=== PATIENT | female | born 1995 | race American Indian/Alaskan Native ===

== ENCOUNTER 2018-01-23 23:59 | Emergency (ER) | payer OTHER ==
[2018-01-24 00:43] VITALS: BMI 33.1
[2018-01-24 00:54] VITALS: RESP 18; TEMP 98.3; O2SAT 100
--- NOTE | 2018-01-24 00:57 | ED PDOC ---
Arrival/HPI - General Chief Complaint: Female Genitourinary Time Seen by Provider: 01/24/18 00:47 Historian: Patient - History of Present Illness Narrative History of Present Illness (Text): 01/24/18 00:54 22yo female with no pmhx present to ED requesting test. states she has been feeling nauseous and thinks she might be . She notes that her LMP was December 26. She denies abdominal pain, fever chills, urinary symptoms, dizziness, hematuria, back pain, headache, any other complaint. Past Medical History - Provider Review Nursing Documentation Reviewed: Yes - Hematological/Oncological Hx Blood Disorders: No - Integumentary Hx Dermatological Disorder: No - Musculoskeletal/Rheumatological Hx Musculoskeletal Disorders: No - Gastrointestinal Hx Gastrointestinal Disorders: No - Genitourinary/Gynecological Hx Genitourinary Disorders: No - Psychiatric Hx Psychophysiologic Disorder: No Hx Substance Use: No - Anesthesia Hx Anesthesia: No Family/Social History - Physician Review Nursing Documentation Reviewed: Yes Family/Social History: Unknown Family HX Smoking Status: Never Smoked Hx Alcohol Use: No Hx Substance Use: No Allergies/Home Meds Allergies/Adverse Reactions: Allergies No Known Allergies Allergy (Verified 01/24/18 00:42) Review of Systems - Physician Review All systems were reviewed & negative as marked: Yes - Review of Systems Constitutional: Normal Eyes: Normal ENT: Normal Respiratory: Normal Cardiovascular: Normal Gastrointestinal: Nausea. absent: Abdominal Pain, Constipation, Diarrhea, Vomiting, Hematochezia, Hematemesis Genitourinary Female: Normal Musculoskeletal: Normal Skin: Normal Neurological: Normal Endocrine: Normal Hemo/Lymphatic: Normal Psychiatric: Normal Physical Exam Vital Signs Reviewed: Yes Vital Signs Temp Pulse Resp BP Pulse Ox 01/24/18 01:17 70 18 115/72 100 01/24/18 00:54 98.3 F 68 18 118/70 100 Temperature: Afebrile Blood Pressure: Normal Pulse: Regular Respiratory Rate: Normal Appearance: Positive for: Well-Appearing, Non-Toxic, Comfortable Pain Distress: None Mental Status: Positive for: Alert and Oriented X 3 - Systems Exam Head: Present: Atraumatic, Normocephalic Pupils: Present: PERRL Extroacular Muscles: Present: EOMI Conjunctiva: Present: Normal Mouth: Present: Moist Mucous Membranes Neck: Present: Normal Range of Motion Respiratory/Chest: Present: Clear to Auscultation, Good Air Exchange. No: Respiratory Distress, Accessory Muscle Use Cardiovascular: Present: Regular Rate and Rhythm, Normal S1, S2. No: Murmurs Abdomen: Present: Normal Bowel Sounds, Other (soft). No: Tenderness, Distention , Peritoneal Signs, Rebound, Guarding, McBurney's Point Tender, Rovsing's Sign Present Back: Present: Normal Inspection Upper Extremity: Present: Normal Inspection. No: Cyanosis, Edema Lower Extremity: Present: Normal Inspection. No: Edema Neurological: Present: GCS=15, CN II-XII Intact, Speech Normal Skin: Present: Warm, Dry, Normal Color. No: Rashes Psychiatric: Present: Alert, Oriented x 3, Normal Insight, Normal Concentration Medical Decision Making ED Course and Treatment: 01/24/18 03:20 Upreg was negative. she ws given Zofran and DC home. Referred to [facility]/clinic - Medication Orders Current Medication Orders: Discontinued Medications Ondansetron HCl (Zofran Odt) 4 mg PO STAT STA Stop: 01/24/18 00:59 Last Admin: 01/24/18 01:02 Dose: 4 mg Disposition/Present on Arrival - Present on Arrival Any Indicators Present on Arrival: No History of DVT/PE: No History of Uncontrolled Diabetes: No Urinary Catheter: No History of Decub. Ulcer: No History Surgical Site Infection Following: None - Disposition Have Diagnosis and Disposition been Completed?: Yes Diagnosis: Negative test, Nausea Disposition: HOME/ ROUTINE Disposition Time: 01:00 Patient Plan: Discharge Condition: STABLE Discharge Instructions (ExitCare): Tests, Nausea and Vomiting, Adult Additional Instructions: Follow up with your Doctor Return to ED for any new symptoms Prescriptions: Ondansetron ODT [Zofran ODT] 4 mg PO Q6 #5 odt Referrals: [facility] at [facility] [place] [Outside] - Follow up with primary Forms: [employer] (Setswana)
[2018-01-24 02:35] VITALS: BP 115/72; PULSE 70
== END 2018-01-24 01:17 | disposition home or self-care (01) ==
LOC: ED 23:59
DX: Z32.02 Encounter for pregnancy test, result negative (principal); R11.0 Nausea

== ENCOUNTER 2018-05-27 16:12 | Emergency (ER) | payer OTHER ==
[2018-05-27 16:12] VITALS: BMI 33.1
[2018-05-27 16:32] VITALS: BP 124/68; PULSE 81; RESP 16; TEMP 98.2; O2SAT 100
--- NOTE | 2018-05-27 16:40 | ED PDOC ---
Arrival/HPI - General Chief Complaint: Abdominal Pain Time Seen by Provider: 05/27/18 16:15 Historian: Patient - History of Present Illness Narrative History of Present Illness (Text): 05/27/18 16:35 A 22 year old female, with no significant past medical history, presents to the emergency department complaining of abdominal cramping associated with nausea and vomiting. Patient describes abdominal cramping as though "something is moving in there." Patient requests to find out whether or not she is . Patient denies any other complaints at this time. No PMD Past Medical History - Provider Review Nursing Documentation Reviewed: Yes - Infectious Disease Hx of Infectious Diseases: None - Cardiac Hx Cardiac Disorders: No - Pulmonary Hx Respiratory Disorders: No - Neurological Hx Neurological Disorder: No - HEENT Hx HEENT Disorder: No - Renal Hx Renal Disorder: No - Endocrine/Metabolic Hx Endocrine Disorders: No - Hematological/Oncological Hx Blood Disorders: No - Integumentary Hx Dermatological Disorder: No - Musculoskeletal/Rheumatological Hx Musculoskeletal Disorders: No - Gastrointestinal Hx Gastrointestinal Disorders: No - Genitourinary/Gynecological Hx Genitourinary Disorders: No - Psychiatric Hx Psychophysiologic Disorder: No Hx Substance Use: Yes (Marijuana daily) - Anesthesia Hx Anesthesia: No Family/Social History - Physician Review Nursing Documentation Reviewed: Yes Family/Social History: No Known Family HX Smoking Status: Marijuana Hx Alcohol Use: Yes Frequency of alcohol use: Socially Hx Substance Use: Yes (Marijuana daily) Allergies/Home Meds Allergies/Adverse Reactions: Allergies No Known Allergies Allergy (Verified 01/24/18 00:42) Review of Systems - Physician Review All systems were reviewed & negative as marked: Yes - Review of Systems Constitutional: absent: Fevers, Night Sweats Gastrointestinal: Abdominal Pain (cramping), Nausea, Vomiting Physical Exam Vital Signs Reviewed: Yes Vital Signs Temp Pulse Resp BP Pulse Ox 05/27/18 16:32 98.2 F 81 16 124/68 100 Temperature: Afebrile Blood Pressure: Normal Pulse: Regular Respiratory Rate: Normal Appearance: Positive for: Well-Appearing, Non-Toxic, Comfortable, Other (obese) Pain Distress: None Mental Status: Positive for: Alert and Oriented X 3 - Systems Exam Head: Present: Atraumatic, Normocephalic Pupils: Present: PERRL Extroacular Muscles: Present: EOMI Conjunctiva: Present: Normal Mouth: Present: Moist Mucous Membranes Neck: Present: Normal Range of Motion Respiratory/Chest: Present: Clear to Auscultation, Good Air Exchange. No: Respiratory Distress, Accessory Muscle Use Cardiovascular: Present: Regular Rate and Rhythm, Normal S1, S2. No: Murmurs Abdomen: No: Tenderness, Distention, Peritoneal Signs Back: Present: Normal Inspection Upper Extremity: Present: Normal Inspection. No: Cyanosis, Edema Lower Extremity: Present: Normal Inspection. No: Edema Neurological: Present: GCS=15, CN II-XII Intact, Speech Normal Skin: Present: Warm, Dry, Normal Color. No: Rashes Psychiatric: Present: Alert, Oriented x 3, Normal Insight, Normal Concentration Medical Decision Making ED Course and Treatment: 05/27/18 16:48 Impression: 22 year old female with abdominal cramping with associated nausea and vomiting. No acute findings on physical exam except patient appears obese. ro gastris pancreatis colitis gerd. Plan: -- Reassess and disposition Prior Visits: Notes and results from previous visits were reviewed. Patient was last seen here in the emergency department on 01/24/2018 requesting for test. Patient was discharged home and referred to [facility]. Progress Notes: Leaving Against Medical Advice (AMA): The patient is choosing to leave against medical advice. I have personally explained to the patient that choosing to do so may result in permanent bodily harm or . I have discussed at great length that without further evaluation and monitoring there may be unforeseen circumstances and/or deterioration causing permanent bodily harm or as a result of their choice. The patient is alert, oriented, and shows the mental capacity to make clear decisions regarding the patient's health care at this time. The patient continues to wish to leave against medical advice. In light of the patient's decision to leave against medical advice, follow-up has been arranged and the patient is aware of the importance to following up as instructed. The patient has been advised that they should return to the emergency room immediately if they change their mind at any time, or if their condition begins to change or worsen in any way. 05/27/18 17:23 refuses labs , asking for immediate dc. - Scribe Statement The provider has reviewed the documentation as recorded by the Karmen Bedolla Provider Scribe Attestation: All medical record entries made by the Dentonibkenneth were at my direction and personally dictated by me. I have reviewed the chart and agree that the record accurately reflects my personal performance of the history, physical exam, medical decision making, and the department course for this patient. I have also personally directed, reviewed, and agree with the discharge instructions and disposition. Disposition/Present on Arrival - Present on Arrival Any Indicators Present on Arrival: No History of DVT/PE: No History of Uncontrolled Diabetes: No Urinary Catheter: No History of Decub. Ulcer: No History Surgical Site Infection Following: None - Disposition Have Diagnosis and Disposition been Completed?: Yes Diagnosis: Abdominal pain, Left against medical advice Disposition: AGAINST MEDICAL ADVICE Disposition Time: 04:00 Condition: UNKNOWN Discharge Instructions (ExitCare): Acute Abdomen (Belly Pain), Adult (DC), Leaving Against Medical Advice Additional Instructions: return to er with worsening symptoms or concerns. you are declining lab tests and further work up. return to any er with worsening symptoms or concerns. Referrals: [facility] [Outside] - Follow up with primary [facility] at [facility] [place] [Outside] - [facility] with [facility] [Outside] - Follow up with primary Forms: [employer] ([employer])
== END 2018-05-27 16:39 | disposition left against medical advice (07) ==
LOC: ED 16:12
DX: R10.9 Unspecified abdominal pain (principal)

== ENCOUNTER 2018-07-15 18:46 | Observation (INO) | payer MEDICAID, OTHER ==
[2018-07-15 18:49] VITALS: BMI 30.7
[2018-07-15] MEDS ORDERED: Sodium Chloride 0.9% 1,000 ML IV STA (19:11)
--- NOTE | 2018-07-15 19:27 | ED PDOC ---
Arrival/HPI - General Chief Complaint: Abdominal Pain Time Seen by Provider: 07/15/18 18:47 Historian: Patient - History of Present Illness Narrative History of Present Illness (Text): 07/15/18 19:26 23-year-old female presents today with abdominal pain nausea vomiting that started today around 11:00 in the afternoon. Patient is complaining of a crampy diffuse abdominal pain. She denies fevers or chills. Patient states her boy friend had similar symptoms yesterday. Patient denies any urinary symptoms. No bladder or bowel incontinence. She denies back pain. Patient denies chest pain or shortness of breath. No medications have been taken at home. Patient states she's vomited multiple times today and now is unable to hold anything down. Past Medical History - Provider Review Nursing Documentation Reviewed: Yes - Travel History Have you recently traveled outside [place] w/in the past 3 mons?: No - Infectious Disease Hx of Infectious Diseases: None - Cardiac Hx Cardiac Disorders: No - Pulmonary Hx Respiratory Disorders: No - Neurological Hx Neurological Disorder: No - HEENT Hx HEENT Disorder: No - Renal Hx Renal Disorder: No - Endocrine/Metabolic Hx Endocrine Disorders: No - Hematological/Oncological Hx Blood Disorders: No - Integumentary Hx Dermatological Disorder: No - Musculoskeletal/Rheumatological Hx Musculoskeletal Disorders: No - Gastrointestinal Hx Gastrointestinal Disorders: No - Genitourinary/Gynecological Hx Genitourinary Disorders: No - Psychiatric Hx Psychophysiologic Disorder: No Hx Substance Use: Yes (Marijuana daily) - Anesthesia Hx Anesthesia: No Family/Social History - Physician Review Nursing Documentation Reviewed: Yes Family/Social History: Unknown Family HX Smoking Status: Never Smoked Hx Alcohol Use: Yes Hx Substance Use: Yes (Marijuana daily) Allergies/Home Meds Allergies/Adverse Reactions: Allergies No Known Allergies Allergy (Verified 01/24/18 00:42) Review of Systems - Review of Systems Constitutional: absent: Fatigue, Fevers Respiratory: absent: SOB, Cough Cardiovascular: absent: Chest Pain, Palpitations Gastrointestinal: Abdominal Pain, Nausea, Vomiting. absent: Constipation, Diarrhea Genitourinary Female: absent: Dysuria, Frequency, Hematuria, Vaginal Bleeding Musculoskeletal: absent: Arthralgias, Back Pain, Neck Pain Skin: absent: Rash, Pruritis Neurological: absent: Headache Psychiatric: absent: Anxiety, Depression Physical Exam Vital Signs Reviewed: Yes Vital Signs Temp Pulse Resp BP Pulse Ox 07/15/18 18:47 98.9 F 97 H 18 121/67 96 Temperature: Afebrile Blood Pressure: Normal Pulse: Regular Respiratory Rate: Normal Appearance: Positive for: Well-Appearing, Non-Toxic, Comfortable Pain Distress: None Mental Status: Positive for: Alert and Oriented X 3 - Systems Exam Head: Present: Atraumatic Mouth: Present: Moist Mucous Membranes Neck: Present: Normal Range of Motion Respiratory/Chest: Present: Clear to Auscultation, Good Air Exchange. No: Respiratory Distress, Accessory Muscle Use Cardiovascular: Present: Regular Rate and Rhythm, Normal S1, S2. No: Murmurs Abdomen: Present: Tenderness (minimal periumbilical tenderness). No: Distention, Peritoneal Signs, Rebound, Guarding Back: Present: Normal Inspection. No: CVA Tenderness Upper Extremity: Present: Normal ROM Lower Extremity: Present: Normal ROM Neurological: Present: GCS=15, Speech Normal Skin: Present: Warm, Dry, Normal Color. No: Rashes Psychiatric: Present: Alert, Oriented x 3 Medical Decision Making ED Course and Treatment: 07/15/18 19:27 Patient is nontoxic well appearing with stable vital signs presenting with abdominal pain. nausea and vomiting. pt given NS iv bolus, zofran for nausea. CBC wnl CMP slight elevation in ast and alt Lipase wnl Urinalysis no leukocytes CAT scan: Findings: Chest: The visualized lung bases are clear. Abdomen: The kidneys are normal in size bilaterally. There is no evidence of hydronephrosis or nephrolithiasis. The liver, spleen, pancreas, gallbladder and adrenal glands are unremarkable. The aorta demonstrates normal caliber and contour. There is no abdominal lymphadenopathy or ascites. There is mild bowel wall thickening and fluid distention of the proximal small bowel. Pelvis: The colon is unremarkable, with no obstructive or inflammatory changes. The urinary bladder is severely distended, extending into the abdomen. No focal masses are seen within the urinary bladder. There is no pelvic lymphadenopathy or ascites. There is a simple cyst in the left adnexa measuring 2.1 x 1.6 cm. The other pelvic structures appear unremarkable. Bones: There are no suspicious osseous abnormalities seen. Impression: 1. Severe fluid distention the urinary bladder, suspicious for bladder outlet obstruction.2. Mild small bowel enteritis. No evidence of bowel obstruction. 3. No evidence of hydronephrosis or nephrolithiasis. 4. Simple left ovarian cyst. Patient reassessment: pt c/o abdominal pain in er. bladder scan; shows 785cc pt found to have severe distension of urinary bladder. 14 nepali placed. only 250cc of urine from ceja. ? bladder distension vs mass? will consult surgery. case discussed with dr. toledo; will see patient tomorrow in office. case discussed with surgical clinical reviewer Dr. kidd. Discussed all results with patient and family in depth. advised them of my concern for possible mass. case discussed with dr. coe; accepts admission Impression: urinary retention, abdominal pain,nausea/vomiting admit med/surg. 07/15/18 23:33 - RAD Interpretation Radiology Orders: 07/15/18 19:24 ABD & PELVIS IV CONTRAST ONLY [CT] Stat - Medication Orders Current Medication Orders: Sodium Chloride (Sodium Chloride 0.9%) 1,000 mls @ 999 mls/hr IV .Q1H1M STA Stop: 07/15/18 20:11 Ondansetron HCl (Zofran Inj) 4 mg IVP STAT STA Stop: 07/15/18 19:25 Disposition/Present on Arrival - Present on Arrival Any Indicators Present on Arrival: No History of DVT/PE: No History of Uncontrolled Diabetes: No Urinary Catheter: No History of Decub. Ulcer: No History Surgical Site Infection Following: None - Disposition Have Diagnosis and Disposition been Completed?: Yes Diagnosis: Abdominal pain, Nausea & vomiting, Abdominal mass Disposition Time: 21:39 Patient Plan: Observation Patient Problems: Current Active Problems Problem Status Onset Abdominal mass Acute Abdominal pain Acute Nausea & vomiting Acute Condition: FAIR
[2018-07-15 19:43] LABS: BASO # 0.01 K/mm3 (0.0-2.0); BASO % 0.1 % (0.0-3.0); EOS % 0.3 % (1.5-5.0); GRAN # 6.41 (1.4-6.5); GRAN % 86.3 % (50.0-68.0); HEMOGLOBIN 13.9 g/dL (12.0-16.0); LYMPH # 0.6 (1.2-3.4); LYMPH % 8.1 % (22.0-35.0); MEAN CELL VOLUME 91.7 fl (80.0-105.0); MEAN CORPUSCULAR HEMOGLOBIN 31.2 pg (25.0-35.0); MEAN CORPUSCULAR HGB CONC 34.1 g/dl (31.0-37.0); MONO # 0.4 (0.1-0.6); MONO % 5.2 % (1.0-6.0); RBC 4.45 10^6/uL (3.5-6.1); RED CELL DISTRIBUTION WIDTH 13.4 % (11.5-14.5); WHITE BLOOD COUNT 7.4 10^3/uL (4.5-11.0)
[2018-07-15 19:44] LABS: URINE BILIRUBIN NEGATIVE (NEGATIVE); URINE BLOOD NEGATIVE (NEGATIVE); URINE GLUCOSE (UA) NEGATIVE (NEGATIVE); URINE LEUKOCYTE ESTERASE NEGATIVE Leu/uL (NEGATIVE); URINE PROTEIN 30 mg/dL (<30 mg/dL)
[2018-07-15 19:45] LABS: URINE APPEARANCE SLIGHT-CLOUDY (CLEAR); URINE COLOR YELLOW (YELLOW)
[2018-07-15 19:48] LABS: URINE BACTERIA TRACE (NEG); URINE RBC 0 - 2 /hpf (0-2); URINE WBC 0 - 2 /hpf (0-6)
[2018-07-15 19:54] LABS: ALB/GLOB RATIO 1.1 (1.1-1.8); ALBUMIN 4.4 g/dL (3.0-4.8); ALT/SGPT 72 U/L (7-56); AST/SGOT 40 U/L (14-36); BLOOD UREA NITROGEN 14 mg/dL (7-21); CALCIUM 8.9 mg/dL (8.4-10.5); GFR NON-AFRICAN AMERICAN > 60; LIPASE 35 U/L (23-300)
[2018-07-15] MEDS ORDERED: Iohexol 350 MG/100 ML VIAL ONE (20:15)
--- NOTE | 2018-07-16 00:05 | CP.PCM.HP ---
<Bryanna Jett - Last Filed: 07/16/18 06:32> History of Present Illness - History of Present Illness History of Present Illness: Bryanna Jett, PGY1 Hospital H&P This is a 23 year old female who denies any medical history presenting to the hospital for abdominal pain that is has been intermittent over the last few months. Pain is located in the B/L lower abdomen, rated 6/10 at worst, sharp, non radiating and exacerbated by movement and denies any relieving factors. She admits to increasing abdominal distention, constipation and urinary frequency over the last few months as well. Patient states she returned from [place] [employer] over the weekend with her boyfriend and both had nausea and vomiting x7 non bloody over the past day which prompted her to come to the ED. Last BM was this morning at 11AM. She has not had an appetite since her last meal this morning. Per mother, patient has been eating less over the last few months. Patient saw her OBGYN two months ago for routine visit and had pap smear done but denies any other imaging at that time. She denies CP, SOB, fevers, headaches, chills, back pain, diarrhea, hematemesis, hematochezia, numbness, tingling, swelling, recent sickness, trauma and lifestyle change including diet and weight loss/gain. 12 point ROS noted here, otherwise unremarkable. PMD: none currently, will sign up for one soon per patient PMH: denies Meds: denies SH: occasional drinking, smokes marijuana, denies tobacco Sx: denies All: denies FH: DM and HTN LMP was last week with bleeding that last 7-10 days and cycles that are irregular and associated with heavy bleeding Present on Admission - Present on Admission Any Indicators Present on Admission: No Past Patient History - Infectious Disease Hx of Infectious Diseases: None - Past Social History Smoking Status: Current Some Days Smoker - CARDIAC Hx Cardiac Disorders: No - PULMONARY Hx Respiratory Disorders: No - NEUROLOGICAL Hx Neurological Disorder: No - HEENT Hx HEENT Problems: No - RENAL Hx Chronic Kidney Disease: No - ENDOCRINE/METABOLIC Hx Endocrine Disorders: No - HEMATOLOGICAL/ONCOLOGICAL Hx Blood Disorders: No - INTEGUMENTARY Hx Dermatological Problems: No - MUSCULOSKELETAL/RHEUMATOLOGICAL Hx Musculoskeletal Disorders: No - GASTROINTESTINAL Hx Gastrointestinal Disorders: No - GENITOURINARY/GYNECOLOGICAL Hx Genitourinary Disorders: No - PSYCHIATRIC Hx Psychophysiologic Disorder: No Hx Substance Use: Yes (Marijuana daily) - SURGICAL HISTORY Hx Surgeries: No - ANESTHESIA Hx Anesthesia: No Meds Allergies/Adverse Reactions: Allergies Allergy/AdvReac Type Severity Reaction Status Date / Time No Known Allergies Allergy Verified 01/24/18 00:42 Physical Exam - Constitutional Appears: No Acute Distress - Head Exam Head Exam: ATRAUMATIC, NORMAL INSPECTION - Eye Exam Eye Exam: EOMI Pupil Exam: PERRL - ENT Exam ENT Exam: Mucous Membranes Moist - Respiratory Exam Respiratory Exam: Clear to Auscultation Bilateral, NORMAL BREATHING PATTERN. absent: Accessory Muscle Use, Wheezes, Respiratory Distress - Cardiovascular Exam Cardiovascular Exam: REGULAR RHYTHM, +S1, +S2 - GI/Abdominal Exam GI & Abdominal Exam: Distended, Normal Bowel Sounds, Soft. absent: Firm, Guarding Additional comments: B/L lower abdominal tenderness appreciated with superficial tenderness - Extremities Exam Extremities exam: Positive for: normal inspection, pedal pulses present. Negative for: calf tenderness - Back Exam Back exam: NORMAL INSPECTION. absent: CVA tenderness (L), CVA tenderness (R) - Neurological Exam Neurological exam: Alert, Oriented x3 - Skin Skin Exam: Normal Color, Warm Results - Vital Signs Recent Vital Signs: Last Vital Signs Temp 98.9 F 07/15/18 18:47 Pulse 97 H 07/15/18 18:47 Resp 18 07/15/18 18:47 BP 121/67 07/15/18 18:47 Pulse Ox 96 07/15/18 18:47 - Labs Result Diagrams: 07/15/18 19:15 07/15/18 19:15 Labs: Laboratory Results - last 24 hr 07/15/18 07/15/18 07/15/18 19:15 19:15 19:15 WBC 7.4 RBC 4.45 Hgb 13.9 Hct 40.8 MCV 91.7 MCH 31.2 MCHC 34.1 RDW 13.4 Plt Count 199 MPV 12.0 H Gran % 86.3 H Lymph % (Auto) 8.1 L [place] % (Auto) 5.2 Eos % (Auto) 0.3 L Baso % (Auto) 0.1 Gran # 6.41 Lymph # (Auto) 0.6 L [place] # (Auto) 0.4 Eos # (Auto) 0.0 Baso # (Auto) 0.01 Sodium 141 Potassium 4.3 Chloride 105 Carbon Dioxide 27 Anion Gap 13 BUN 14 Creatinine 0.6 L Est GFR ( Amer) > 60 Est GFR (Non-Af Amer) > 60 Random Glucose 111 H Calcium 8.9 Total Bilirubin 1.1 AST 40 H ALT 72 H Alkaline Phosphatase 96 Total Protein 8.4 H Albumin 4.4 Globulin 4.0 Albumin/Globulin Ratio 1.1 Lipase 35 Urine Color Yellow Urine Appearance Slight-cloudy Urine pH 6.0 Ur Specific [place] >= 1.030 Urine Protein 30 H Urine Glucose (UA) Negative Urine Ketones Trace H Urine Blood Negative Urine Nitrate Negative Urine Bilirubin Negative Urine Urobilinogen 1.0 H Ur Leukocyte Esterase Negative Urine RBC 0 - 2 Urine WBC 0 - 2 Ur Epithelial Cells 6 - 8 Urine Bacteria Trace Urine Other Mucus Assessment & Plan - Assessment and Plan (Free Text) Assessment: This is a 23 year old female who denies any medical history presenting to the hospital for abdominal pain that is has been intermittent over the last few months. Working up patient for possible benign cystic structure vs malignancy. Plan: Abdominal mass -CTAP showed large cystic structure extending from the pelvis into the abdomen measuring approximately 30 x 25 x 15 cm, of uncertain etiology but may be ovarian in origin. The urinary bladder is underdistended and is compressed by the cystic lesion. F/u official read -bladder scan showed urinary retention of 705cc -ceja drained 200cc of urine in ED -CEA, CA 125 pending -Chest CT pending -MRI of abdomen/pelvis pending -transvaginal US pending -POC is negative -urology on consult, Dr. Snyder -OBGYN on consult, Dr. Mcpherson -GI on consult, Dr. Hughes -Surgery on consult, Dr. Ortega Transaminitis -uncertain etiology, consider local compression by abdominal mass -hepatitis panel pending -HIV pending PPX with SCD and pepcid Patient seen and case discussed with attending, Dr. Multani <Hannah Multani - Last Filed: 07/16/18 19:37> Results - Vital Signs Recent Vital Signs: Last Vital Signs Temp 98.6 F 07/16/18 14:21 Pulse 98 H 07/16/18 14:21 Resp 18 07/16/18 14:21 BP 106/65 07/16/18 14:21 Pulse Ox 98 07/16/18 14:21 - Labs Result Diagrams: 07/16/18 07:00 07/16/18 07:00 Labs: Laboratory Results - last 24 hr 07/15/18 07/15/18 07/15/18 19:15 19:15 19:15 WBC 7.4 RBC 4.45 Hgb 13.9 Hct 40.8 MCV 91.7 MCH 31.2 MCHC 34.1 RDW 13.4 Plt Count 199 MPV 12.0 H Gran % 86.3 H Lymph % (Auto) 8.1 L [place] % (Auto) 5.2 Eos % (Auto) 0.3 L Baso % (Auto) 0.1 Gran # 6.41 Lymph # (Auto) 0.6 L [place] # (Auto) 0.4 Eos # (Auto) 0.0 Baso # (Auto) 0.01 Sodium 141 Potassium 4.3 Chloride 105 Carbon Dioxide 27 Anion Gap 13 BUN 14 Creatinine 0.6 L Est GFR ( Amer) > 60 Est GFR (Non-Af Amer) > 60 Random Glucose 111 H Calcium 8.9 Phosphorus Magnesium Total Bilirubin 1.1 AST 40 H ALT 72 H Alkaline Phosphatase 96 Total Protein 8.4 H Albumin 4.4 Globulin 4.0 Albumin/Globulin Ratio 1.1 Lipase 35 Carcinoembryonic Ag [place] 125 Antigen Urine Color Yellow Urine Appearance Slight-cloudy Urine pH 6.0 Ur Specific [place] >= 1.030 Urine Protein 30 H Urine Glucose (UA) Negative Urine Ketones Trace H Urine Blood Negative Urine Nitrate Negative Urine Bilirubin Negative Urine Urobilinogen 1.0 H Ur Leukocyte Esterase Negative Urine RBC 0 - 2 Urine WBC 0 - 2 Ur Epithelial Cells 6 - 8 Urine Bacteria Trace Urine Other Mucus Hepatitis A IgM Ab Hep Bs Antigen Hep B Core IgM Ab Hepatitis C Antibody 07/15/18 07/15/18 07/16/18 19:15 19:15 07:00 WBC 6.6 RBC 4.16 Hgb 12.7 Hct 37.7 MCV 90.6 MCH 30.5 MCHC 33.7 RDW 13.6 Plt Count 193 MPV 11.8 H Gran % 80.7 H Lymph % (Auto) 12.1 L [place] % (Auto) 7.0 H Eos % (Auto) 0.0 L Baso % (Auto) 0.2 Gran # 5.33 Lymph # (Auto) 0.8 L [place] # (Auto) 0.5 Eos # (Auto) 0.0 Baso # (Auto) 0.01 Sodium Potassium Chloride Carbon Dioxide Anion Gap BUN Creatinine Est GFR ( Amer) Est GFR (Non-Af Amer) Random Glucose Calcium Phosphorus Magnesium Total Bilirubin AST ALT Alkaline Phosphatase Total Protein Albumin Globulin Albumin/Globulin Ratio Lipase Carcinoembryonic Ag 0.8 CA 125 Antigen < 5.5 Urine Color Urine Appearance Urine pH Ur Specific [place] Urine Protein Urine Glucose (UA) Urine Ketones Urine Blood Urine Nitrate Urine Bilirubin Urine Urobilinogen Ur Leukocyte Esterase Urine RBC Urine WBC Ur Epithelial Cells Urine Bacteria Urine Other Hepatitis A IgM Ab Hep Bs Antigen Hep B Core IgM Ab Hepatitis C Antibody 07/16/18 07/16/18 07:00 07:00 WBC RBC Hgb Hct MCV MCH MCHC RDW Plt Count MPV Gran % Lymph % (Auto) [place] % (Auto) Eos % (Auto) Baso % (Auto) Gran # Lymph # (Auto) [place] # (Auto) Eos # (Auto) Baso # (Auto) Sodium 137 Potassium 3.7 Chloride 104 Carbon Dioxide 27 Anion Gap 10 BUN 10 Creatinine 0.6 L Est GFR ( Amer) > 60 Est GFR (Non-Af Amer) > 60 Random Glucose 106 Calcium 8.7 Phosphorus 3.7 Magnesium 1.8 Total Bilirubin 1.8 H AST 29 ALT 62 H Alkaline Phosphatase 86 Total Protein 7.8 Albumin 4.0 Globulin 3.8 Albumin/Globulin Ratio 1.1 Lipase Carcinoembryonic Ag CA 125 Antigen Urine Color Urine Appearance Urine pH Ur Specific [place] Urine Protein Urine Glucose (UA) Urine Ketones Urine Blood Urine Nitrate Urine Bilirubin Urine Urobilinogen Ur Leukocyte Esterase Urine RBC Urine WBC Ur Epithelial Cells Urine Bacteria Urine Other Hepatitis A IgM Ab Negative Hep Bs Antigen Negative Hep B Core IgM Ab Negative Hepatitis C Antibody Negative Attending/Attestation - Attestation I have personally seen and examined this patient.: Yes I have fully participated in the care of the patient.: Yes I have reviewed all pertinent clinical information: Yes
[2018-07-16] MEDS ORDERED: Influenza Vaccine 60 mcg/0.5 mL SYR (4YR UP) IM ONE (02:09)
--- NOTE | 2018-07-16 02:34 | CP.PCM.CON ---
History of Present Illness - History of Present Illness History of Present Illness: 23F with no significant past medical history who presents to [facility] [place] ED with complaints of abdominal pain. Patient states abdominal pain has been intermittent in nature over the past 5 months. She reports having ongoing intermittent nausea/vomiting over these past 5 months, as well as increase in urinary frequency. As per patient's mother, pt has not been eating as much since the onset of symptoms began and pt reports increase in abdominal girth despite lower food intake. Patient is satiated with small meals. Patient describes pain is located along her lower abdominal region. Her last menstrual period was last week. Patient states her menstrual cycles are irregular and typically last 7-10 days with heavy bleeding throughout. At time of examination patient denied fever/chills, chest pain, SOB, hematemesis, hematochezia. PMH: as stated above PSurgHx: denies SH: occasional drinking, smokes marijuana, denies tobacco All: NKDA FH: DM and HTN. Denies history of CA Past Patient History - Infectious Disease Hx of Infectious Diseases: None - Past Social History Smoking Status: Current Some Days Smoker - CARDIAC Hx Cardiac Disorders: No - PULMONARY Hx Respiratory Disorders: No - NEUROLOGICAL Hx Neurological Disorder: No - HEENT Hx HEENT Problems: No - RENAL Hx Chronic Kidney Disease: No - ENDOCRINE/METABOLIC Hx Endocrine Disorders: No - HEMATOLOGICAL/ONCOLOGICAL Hx Blood Disorders: No - INTEGUMENTARY Hx Dermatological Problems: No - MUSCULOSKELETAL/RHEUMATOLOGICAL Hx Musculoskeletal Disorders: No Hx Falls: No - GASTROINTESTINAL Hx Gastrointestinal Disorders: No - GENITOURINARY/GYNECOLOGICAL Hx Genitourinary Disorders: No - PSYCHIATRIC Hx Psychophysiologic Disorder: No Hx Substance Use: Yes (marijuana) - SURGICAL HISTORY Hx Surgeries: No - ANESTHESIA Hx Anesthesia: No Meds Allergies/Adverse Reactions: Allergies Allergy/AdvReac Type Severity Reaction Status Date / Time No Known Allergies Allergy Verified 01/24/18 00:42 - Medications Medications: Current Medications Famotidine (Pepcid) 20 mg IVP DAILY [facility] Results - Vital Signs Recent Vital Signs: Last Vital Signs Temp 98.0 F 07/15/18 23:22 Pulse 100 H 07/16/18 00:15 Resp 20 07/16/18 00:43 BP 108/68 07/16/18 00:15 Pulse Ox 100 07/16/18 00:15 - Labs Result Diagrams: 07/15/18 19:15 07/15/18 19:15 Labs: Laboratory Results - last 24 hr 07/15/18 07/15/18 07/15/18 19:15 19:15 19:15 WBC 7.4 RBC 4.45 Hgb 13.9 Hct 40.8 MCV 91.7 MCH 31.2 MCHC 34.1 RDW 13.4 Plt Count 199 MPV 12.0 H Gran % 86.3 H Lymph % (Auto) 8.1 L [place] % (Auto) 5.2 Eos % (Auto) 0.3 L Baso % (Auto) 0.1 Gran # 6.41 Lymph # (Auto) 0.6 L [place] # (Auto) 0.4 Eos # (Auto) 0.0 Baso # (Auto) 0.01 Sodium 141 Potassium 4.3 Chloride 105 Carbon Dioxide 27 Anion Gap 13 BUN 14 Creatinine 0.6 L Est GFR ( Amer) > 60 Est GFR (Non-Af Amer) > 60 Random Glucose 111 H Calcium 8.9 Total Bilirubin 1.1 AST 40 H ALT 72 H Alkaline Phosphatase 96 Total Protein 8.4 H Albumin 4.4 Globulin 4.0 Albumin/Globulin Ratio 1.1 Lipase 35 Carcinoembryonic Ag Urine Color Yellow Urine Appearance Slight-cloudy Urine pH 6.0 Ur Specific [place] >= 1.030 Urine Protein 30 H Urine Glucose (UA) Negative Urine Ketones Trace H Urine Blood Negative Urine Nitrate Negative Urine Bilirubin Negative Urine Urobilinogen 1.0 H Ur Leukocyte Esterase Negative Urine RBC 0 - 2 Urine WBC 0 - 2 Ur Epithelial Cells 6 - 8 Urine Bacteria Trace Urine Other Mucus 07/15/18 19:15 WBC RBC Hgb Hct MCV MCH MCHC RDW Plt Count MPV Gran % Lymph % (Auto) [place] % (Auto) Eos % (Auto) Baso % (Auto) Gran # Lymph # (Auto) [place] # (Auto) Eos # (Auto) Baso # (Auto) Sodium Potassium Chloride Carbon Dioxide Anion Gap BUN Creatinine Est GFR ( Amer) Est GFR (Non-Af Amer) Random Glucose Calcium Total Bilirubin AST ALT Alkaline Phosphatase Total Protein Albumin Globulin Albumin/Globulin Ratio Lipase Carcinoembryonic Ag 0.8 Urine Color Urine Appearance Urine pH Ur Specific [place] Urine Protein Urine Glucose (UA) Urine Ketones Urine Blood Urine Nitrate Urine Bilirubin Urine Urobilinogen Ur Leukocyte Esterase Urine RBC Urine WBC Ur Epithelial Cells Urine Bacteria Urine Other Assessment & Plan - Assessment and Plan (Free Text) Assessment: 23F with large intra-abdominal cystic mass likely ovarian in origin Plan: -F/u tumor markers -F/u CT results -F/u MRI findings -Recommend gynecology consult
[2018-07-16 07:15] LABS: BASO # 0.01 K/mm3 (0.0-2.0); BASO % 0.2 % (0.0-3.0); GRAN # 5.33 (1.4-6.5); GRAN % 80.7 % (50.0-68.0); HEMOGLOBIN 12.7 g/dL (12.0-16.0); LYMPH # 0.8 (1.2-3.4); LYMPH % 12.1 % (22.0-35.0); MEAN CELL VOLUME 90.6 fl (80.0-105.0); MEAN CORPUSCULAR HEMOGLOBIN 30.5 pg (25.0-35.0); MEAN CORPUSCULAR HGB CONC 33.7 g/dl (31.0-37.0); MEAN PLATELET VOLUME 11.8 fl (7.0-11.0); MONO # 0.5 (0.1-0.6); RBC 4.16 10^6/uL (3.5-6.1); RED CELL DISTRIBUTION WIDTH 13.6 % (11.5-14.5); WHITE BLOOD COUNT 6.6 10^3/uL (4.5-11.0)
[2018-07-16 07:31] LABS: ALB/GLOB RATIO 1.1 (1.1-1.8); ALT/SGPT 62 U/L (7-56); AST/SGOT 29 U/L (14-36); BLOOD UREA NITROGEN 10 mg/dL (7-21); CALCIUM 8.7 mg/dL (8.4-10.5); GFR NON-AFRICAN AMERICAN > 60
--- NOTE | 2018-07-16 07:38 | CT ---
Date of service: 07/15/2018 PROCEDURE: CT Abdomen and Pelvis with contrast HISTORY: abd pain COMPARISON: None. TECHNIQUE: Contrast dose: Radiation dose: Total exam DLP = 733.49 mGy-cm. This CT exam was performed using one or more of the following dose reduction techniques: Automated exposure control, adjustment of the mA and/or kV according to patient size, and/or use of iterative reconstruction technique. FINDINGS: LOWER THORAX: Unremarkable. LIVER: Unremarkable. No gross lesion or ductal dilatation. GALLBLADDER AND BILE DUCTS: Unremarkable. PANCREAS: Unremarkable. No gross lesion or ductal dilatation. SPLEEN: Unremarkable. ADRENALS: Unremarkable. No mass. KIDNEYS AND URETERS: Unremarkable. No hydronephrosis. No solid mass. VASCULATURE: Unremarkable. No aortic aneurysm. No aortic atherosclerotic calcification or mural plaque present. BOWEL: Unremarkable. No obstruction. No gross mural thickening. APPENDIX: Normal appendix. PERITONEUM: Unremarkable. No free fluid. No free air. LYMPH NODES: Unremarkable. No enlarged lymph nodes. BLADDER: Severe distention of the urinary bladder; correlate clinically for bladder outlet obstruction.. REPRODUCTIVE: Unremarkable. BONES: No acute fracture. OTHER FINDINGS: None. IMPRESSION: Severe distention of the urinary bladder; correlate clinically for bladder outlet obstruction..
--- NOTE | 2018-07-16 07:46 | CT ---
Date of service: 07/16/2018 PROCEDURE: CT Chest without contrast HISTORY: r/o mets COMPARISON: None available. TECHNIQUE: Contiguous axial images were obtained through the chest without intravenous contrast enhancement. Sagittal and coronal reconstructions were performed. Radiation dose: Total exam DLP = 446.77 mGy-cm. This CT exam was performed using one or more of the following dose reduction techniques: Automated exposure control, adjustment of the mA and/or kV according to patient size, and/or use of iterative reconstruction technique. FINDINGS: LUNGS: Clear lungs. Visualized airway clear MEDIASTINUM: Unremarkable thoracic aorta. No aneurysm. Normal sized heart. Main pulmonary artery unremarkable. No vascular congestion. No lymphadenopathy. No aortic atherosclerotic calcification. PLEURA: No pleural fluid. No pneumothorax. BONES: No fracture. No destructive lesion. UPPER ABDOMEN: Partially imaged large cystic lesion in the abdomen which was seen in the previous CT of the abdomen and pelvis dated 07/15/2018 likely represent adnexal cystic neoplasm. OTHER FINDINGS: None. IMPRESSION: No evidence of nodule or mass in the lungs. No evidence of mediastinal or axillary lymphadenopathy. Preliminary report was submitted by [facility] contains concordant findings.
--- NOTE | 2018-07-16 10:30 | US ---
Date of service: 07/16/2018 HISTORY: pelvic mass COMPARISON: None available. TECHNIQUE: Transabdominal and endovaginal ultrasound examination of pelvis. FINDINGS: UTERUS: Measures 6.4 x 3.5 x 5.1 cm. Normal in size and appearance. No fibroid or other mass lesion seen. ENDOMETRIUM: Measures 10 mm in diameter. Unremarkable. CERVIX: No cervical abnormality identified. RIGHT OVARY: Measures 2.8 x 2 x 3.2 cm. No solid mass. Normal flow. LEFT OVARY: Measures 3.5 x 4.3 x 2.2 cm. No solid mass. Normal flow. There is hypoechoic cyst seen at the left ovary measures 2.1 x 2.2 x 1.3 centimeter. FREE FLUID: No significant free fluid noted. OTHER FINDINGS: There is a large complex cystic mass extending from the pelvis to the upper abdomen contains low-level echoes and possible small septation seen at the midline of uncertain etiology. This cystic mass is separate from the bladder. The differential consideration includes mesenteric cystic neoplasm versus less likely adnexal cystic neoplasm given the normal appearance of both ovaries. IMPRESSION: No evidence of acute pathology in the uterus and ovaries. 2.2 centimeter cyst in the left ovary. Large complex cystic mass extending from the pelvis to the upper abdomen contains low-level echoes and possible small septation as discussed above. Further assessment by MRI of the abdomen and pelvis is suggested.
[2018-07-16] MEDS ORDERED: Gadodiamide 287 MG/ML VIAL (15ML) IV ONE (10:40)
[2018-07-16 13:12] LABS: HEPATITIS B SURFACE AG Negative (NEGATIVE)
[2018-07-16 13:19] LABS: HEPATITIS A IGM NEGATIVE (NEGATIVE); HEPATITIS B CORE AB NEGATIVE (NEGATIVE)
[2018-07-16 13:30] LABS: HEPATITIS C ANTIBODY NEGATIVE (NEGATIVE)
--- NOTE | 2018-07-16 14:10 | CP.PCM.CON ---
History of Present Illness - History of Present Illness History of Present Illness: Patient is a 23yo nullparous female who presented yesterday to ER with abdominal discomfort and vomiting. An incidental 30cm pelvic mass was found on CT scan, origin unknown. Patient evaluated at bedside and denies CP, no SOB, no N/v, tolerating PO diet, ambulating well, minimal abdominal discomfort. Patient reports she had recently seen her [facility] [facility] and had a manual pelvic exam - has never been told she had a mass. Review of Systems - Constitutional Constitutional: As Per HPI - EENT Eyes: As Per HPI Nose/Mouth/Throat: As Per HPI - Breasts Breasts: As Per HPI - Cardiovascular Cardiovascular: As Per HPI - Gastrointestinal Gastrointestinal: As Per HPI - Genitourinary Genitourinary: As Per HPI - Reproductive: Female Reproductive:Female: Heavy Menses - Menstruation Menstruation: Menses 1-7 Days, Heavy Menses - Psychiatric Psychiatric: As Per HPI Past Patient History - Infectious Disease Hx of Infectious Diseases: None - Past Social History Smoking Status: Current Some Days Smoker - CARDIAC Hx Cardiac Disorders: No - PULMONARY Hx Respiratory Disorders: No - NEUROLOGICAL Hx Neurological Disorder: No - HEENT Hx HEENT Problems: No - RENAL Hx Chronic Kidney Disease: No - ENDOCRINE/METABOLIC Hx Endocrine Disorders: No - HEMATOLOGICAL/ONCOLOGICAL Hx Blood Disorders: No - INTEGUMENTARY Hx Dermatological Problems: No - MUSCULOSKELETAL/RHEUMATOLOGICAL Hx Musculoskeletal Disorders: No - GASTROINTESTINAL Hx Gastrointestinal Disorders: No - GENITOURINARY/GYNECOLOGICAL Hx Genitourinary Disorders: No - PSYCHIATRIC Hx Psychophysiologic Disorder: No Hx Substance Use: Yes (Marijuana daily) - SURGICAL HISTORY Hx Surgeries: No - ANESTHESIA Hx Anesthesia: No Meds Allergies/Adverse Reactions: Allergies Allergy/AdvReac Type Severity Reaction Status Date / Time No Known Allergies Allergy Verified 01/24/18 00:42 - Medications Medications: Current Medications Famotidine (Pepcid) 20 mg IVP DAILY JC Last Admin: 07/16/18 12:24 Dose: 20 mg Physical Exam - Head Exam Head Exam: ATRAUMATIC - Eye Exam Eye Exam: Normal appearance Pupil Exam: NORMAL ACCOMODATION - Respiratory Exam Respiratory Exam: Clear to Auscultation Bilateral, NORMAL BREATHING PATTERN - Cardiovascular Exam Cardiovascular Exam: REGULAR RHYTHM, +S1, +S2 - GI/Abdominal Exam GI & Abdominal Exam: Normal Bowel Sounds Additional comments: soft, non-distended abdomen, no pain on palpation, +BS - Extremities Exam Extremities exam: Positive for: normal inspection Results - Vital Signs Recent Vital Signs: Last Vital Signs Temp 98.9 F 07/16/18 06:00 Pulse 100 H 07/16/18 06:00 Resp 18 07/16/18 06:00 BP 107/64 07/16/18 06:00 Pulse Ox 98 07/16/18 06:00 - Labs Result Diagrams: 07/16/18 07:00 07/16/18 07:00 Labs: Laboratory Results - last 24 hr 07/15/18 07/15/18 07/15/18 19:15 19:15 19:15 WBC 7.4 RBC 4.45 Hgb 13.9 Hct 40.8 MCV 91.7 MCH 31.2 MCHC 34.1 RDW 13.4 Plt Count 199 MPV 12.0 H Gran % 86.3 H Lymph % (Auto) 8.1 L [place] % (Auto) 5.2 Eos % (Auto) 0.3 L Baso % (Auto) 0.1 Gran # 6.41 Lymph # (Auto) 0.6 L [place] # (Auto) 0.4 Eos # (Auto) 0.0 Baso # (Auto) 0.01 Sodium 141 Potassium 4.3 Chloride 105 Carbon Dioxide 27 Anion Gap 13 BUN 14 Creatinine 0.6 L Est GFR ( Amer) > 60 Est GFR (Non-Af Amer) > 60 Random Glucose 111 H Calcium 8.9 Phosphorus Magnesium Total Bilirubin 1.1 AST 40 H ALT 72 H Alkaline Phosphatase 96 Total Protein 8.4 H Albumin 4.4 Globulin 4.0 Albumin/Globulin Ratio 1.1 Lipase 35 Carcinoembryonic Ag CA 125 Antigen Urine Color Yellow Urine Appearance Slight-cloudy Urine pH 6.0 Ur Specific [place] >= 1.030 Urine Protein 30 H Urine Glucose (UA) Negative Urine Ketones Trace H Urine Blood Negative Urine Nitrate Negative Urine Bilirubin Negative Urine Urobilinogen 1.0 H Ur Leukocyte Esterase Negative Urine RBC 0 - 2 Urine WBC 0 - 2 Ur Epithelial Cells 6 - 8 Urine Bacteria Trace Urine Other Mucus Hepatitis A IgM Ab Hep Bs Antigen Hep B Core IgM Ab Hepatitis C Antibody 07/15/18 07/15/18 07/16/18 19:15 19:15 07:00 WBC 6.6 RBC 4.16 Hgb 12.7 Hct 37.7 MCV 90.6 MCH 30.5 MCHC 33.7 RDW 13.6 Plt Count 193 MPV 11.8 H Gran % 80.7 H Lymph % (Auto) 12.1 L [place] % (Auto) 7.0 H Eos % (Auto) 0.0 L Baso % (Auto) 0.2 Gran # 5.33 Lymph # (Auto) 0.8 L [place] # (Auto) 0.5 Eos # (Auto) 0.0 Baso # (Auto) 0.01 Sodium Potassium Chloride Carbon Dioxide Anion Gap BUN Creatinine Est GFR ( Amer) Est GFR (Non-Af Amer) Random Glucose Calcium Phosphorus Magnesium Total Bilirubin AST ALT Alkaline Phosphatase Total Protein Albumin Globulin Albumin/Globulin Ratio Lipase Carcinoembryonic Ag 0.8 CA 125 Antigen < 5.5 Urine Color Urine Appearance Urine pH Ur Specific [place] Urine Protein Urine Glucose (UA) Urine Ketones Urine Blood Urine Nitrate Urine Bilirubin Urine Urobilinogen Ur Leukocyte Esterase Urine RBC Urine WBC Ur Epithelial Cells Urine Bacteria Urine Other Hepatitis A IgM Ab Hep Bs Antigen Hep B Core IgM Ab Hepatitis C Antibody 07/16/18 07/16/18 07:00 07:00 WBC RBC Hgb Hct MCV MCH MCHC RDW Plt Count MPV Gran % Lymph % (Auto) [place] % (Auto) Eos % (Auto) Baso % (Auto) Gran # Lymph # (Auto) [place] # (Auto) Eos # (Auto) Baso # (Auto) Sodium 137 Potassium 3.7 Chloride 104 Carbon Dioxide 27 Anion Gap 10 BUN 10 Creatinine 0.6 L Est GFR ( Amer) > 60 Est GFR (Non-Af Amer) > 60 Random Glucose 106 Calcium 8.7 Phosphorus 3.7 Magnesium 1.8 Total Bilirubin 1.8 H AST 29 ALT 62 H Alkaline Phosphatase 86 Total Protein 7.8 Albumin 4.0 Globulin 3.8 Albumin/Globulin Ratio 1.1 Lipase Carcinoembryonic Ag CA 125 Antigen Urine Color Urine Appearance Urine pH Ur Specific [place] Urine Protein Urine Glucose (UA) Urine Ketones Urine Blood Urine Nitrate Urine Bilirubin Urine Urobilinogen Ur Leukocyte Esterase Urine RBC Urine WBC Ur Epithelial Cells Urine Bacteria Urine Other Hepatitis A IgM Ab Negative Hep Bs Antigen Negative Hep B Core IgM Ab Negative Hepatitis C Antibody Negative Assessment & Plan - Assessment and Plan (Free Text) Assessment: A/P 23 yo nullparous female with a 30cm cystic pelvic mass found on exam 1. Patient has had a CT scan, transvaginal U/s and pelvic MRI. From the transvaginal U/s, normal bilateral ovaries and uterus were observed. Pelvic mass does not seem to be coming from adnexal or direct care professional structures, looks cystic on appearance with one septation appreciated. On palpation abdomen quite soft, non- tender, slight distention consistent with a 30cm cystic mass. Patient has no other direct care professional complaints at this time 2. Plan of care at this point in coordination with attending, is for review of radiologic findings by GI and surgery. Further surgical management to be determined 3. patient at this point appears medically stable, no present direct care professional issues. Consult appreciated, please re-consult if further evaluation needed - Date & Time Date: 07/16/18 Time: 14:10
--- NOTE | 2018-07-16 15:02 | MRI ---
Date of service: 07/16/2018 PROCEDURE: MRI of the pelvis with and without contrast HISTORY: abdominal mass COMPARISON: Comparison is made with the previous CT dated 07/15/2018 TECHNIQUE: Axial coronal and sagittal MRI images of the pelvis were obtained before and after IV contrast administration. FINDINGS: The uterus is normal in size and shape slightly displaced posteriorly. No evidence of fibroid or mass in the uterus. The junctional zone is normal in thickness. The endometrial stripe thickness is 1.2 centimeter. The right ovary is visualized displaced slightly superiorly and posteriorly in the mid pelvis contains normal size follicles. The left ovary is also visualized contains hyperintense T2 cyst measures 2.2 centimeter in the AP diameter and 1.6 centimeter in the longitudinal diameter. There is very large thin wall hyperintense T2 and hypointense T1 cyst extending from the pelvis to the upper abdomen demonstrate no enhancing solid component. IMPRESSION: 2.2 centimeter cyst in the left adnexa. Otherwise uterus and ovaries are grossly unremarkable. Thin wall cystic lesion extending from the pelvis to the upper abdomen demonstrate no significant enhancement or solid component.
--- NOTE | 2018-07-16 17:31 | MRI ---
Date of service: 07/16/2018 PROCEDURE: MRI of the abdomen with and without contrast HISTORY: abdominal mass COMPARISON: Comparison is made to the previous CT dated 07/15/2018. TECHNIQUE: Axial and coronal MRI images of the abdomen were obtained before and after IV contrast administration. FINDINGS: There is large slightly heterogeneous thin wall cystic lesion extending from the pelvis to the upper abdomen demonstrate hyperintense T2 and hypointense T1 signal. The postcontrast images demonstrate no significant enhancement in this cystic mass. The liver, spleen, pancreas and adrenal glands are grossly unremarkable. There is no evidence of cholecystitis or biliary obstruction. The abdominal aorta is normal in caliber and shape. No evidence of free fluid in the abdomen. No evidence of bowel obstruction. IMPRESSION: Large cystic lesion in the abdomen extending from the pelvis to the upper abdomen. No evidence of solid enhancing component. No evidence of mass lesion or acute pathology in the upper abdomen solid organs.
[2018-07-16 22:50] VITALS: RESP 20
[2018-07-17 07:36] VITALS: BP 99/60; PULSE 74; TEMP 98.5; O2SAT 98
[2018-07-17 07:36] LABS: BASO # 0.01 K/mm3 (0.0-2.0); BASO % 0.2 % (0.0-3.0); EOS # 0.1 (0.0-0.7); EOS % 1.5 % (1.5-5.0); GRAN # 2.01 (1.4-6.5); GRAN % 49.4 % (50.0-68.0); HEMOGLOBIN 12.8 g/dL (12.0-16.0); LYMPH # 1.5 (1.2-3.4); LYMPH % 37.8 % (22.0-35.0); MEAN CELL VOLUME 91.9 fl (80.0-105.0); MEAN CORPUSCULAR HEMOGLOBIN 30.3 pg (25.0-35.0); MONO # 0.5 (0.1-0.6); MONO % 11.1 % (1.0-6.0); RBC 4.22 10^6/uL (3.5-6.1); RED CELL DISTRIBUTION WIDTH 13.8 % (11.5-14.5); WHITE BLOOD COUNT 4.1 10^3/uL (4.5-11.0)
[2018-07-17 07:51] LABS: ALB/GLOB RATIO 1.1 (1.1-1.8); ALBUMIN 3.9 g/dL (3.0-4.8); ALT/SGPT 50 U/L (7-56); AST/SGOT 26 U/L (14-36); BLOOD UREA NITROGEN 9 mg/dL (7-21); CALCIUM 8.8 mg/dL (8.4-10.5); GFR NON-AFRICAN AMERICAN > 60
--- NOTE | 2018-07-17 12:54 | CP.PCM.DIS ---
Provider - Provider Date of Admission: 07/15/18 22:29 Attending physician: Farshad Jj MD Primary care physician: No PCP Consults: 07/15/18 23:22 Consult [Physician Consult] Routine Comment: Consulting Provider: Darrell Ortega Consulting Physician: Darrell Ortega Reason for Consult: ? mass on CT 07/15/18 23:36 Physician Consult Routine Comment: Consulting Provider: Zak Mathew Consulting Physician: Zak Mathew Reason for Consult: ? urinary distention vs mass 07/15/18 23:56 Gastroenterology Consult Routine Comment: Consulting Provider: Harry Hughes V Consulting Physician: Harry Hughes V Reason for Consult: questionable abdominal mass, fluid Physician Consult Routine Comment: Consulting Provider: Kalee Mcpherson Consulting Physician: Kalee Mcpherson Reason for Consult: questionable abdominal mass, fluid Time Spent in preparation of Discharge (in minutes): 45 Diagnosis - Discharge Diagnosis (1) Abdominal mass Status: Acute Priority: Medium (2) Abdominal pain Status: Acute Priority: Medium (3) Nausea & vomiting Status: Acute Priority: Medium Hospital Course - Lab Results Lab Results: Most Recent Lab Values WBC 4.1 10^3/uL (4.5-11.0) L D 07/17/18 07:10 RBC 4.22 10^6/uL (3.5-6.1) 07/17/18 07:10 Hgb 12.8 g/dL (12.0-16.0) 07/17/18 07:10 Hct 38.8 % (36.0-48.0) 07/17/18 07:10 MCV 91.9 fl (80.0-105.0) 07/17/18 07:10 MCH 30.3 pg (25.0-35.0) 07/17/18 07:10 MCHC 33.0 g/dl (31.0-37.0) 07/17/18 07:10 RDW 13.8 % (11.5-14.5) 07/17/18 07:10 Plt Count 173 10^3/uL (120.0-450.0) 07/17/18 07:10 MPV 11.0 fl (7.0-11.0) 07/17/18 07:10 Gran % 49.4 % (50.0-68.0) L 07/17/18 07:10 Lymph % (Auto) 37.8 % (22.0-35.0) H 07/17/18 07:10 [place] % (Auto) 11.1 % (1.0-6.0) H 07/17/18 07:10 Eos % (Auto) 1.5 % (1.5-5.0) 07/17/18 07:10 Baso % (Auto) 0.2 % (0.0-3.0) 07/17/18 07:10 Gran # 2.01 (1.4-6.5) 07/17/18 07:10 Lymph # (Auto) 1.5 (1.2-3.4) 07/17/18 07:10 [place] # (Auto) 0.5 (0.1-0.6) 07/17/18 07:10 Eos # (Auto) 0.1 (0.0-0.7) 07/17/18 07:10 Baso # (Auto) 0.01 K/mm3 (0.0-2.0) 07/17/18 07:10 Sodium 139 mmol/L (132-148) 07/17/18 07:10 Potassium 3.6 mmol/L (3.6-5.0) 07/17/18 07:10 Chloride 102 mmol/L (98-107) 07/17/18 07:10 Carbon Dioxide 29 mmol/L (21-33) 07/17/18 07:10 Anion Gap 11 (10-20) 07/17/18 07:10 BUN 9 mg/dL (7-21) 07/17/18 07:10 Creatinine 0.7 mg/dl (0.7-1.2) 07/17/18 07:10 Est GFR ( Amer) > 60 07/17/18 07:10 Est GFR (Non-Af Amer) > 60 07/17/18 07:10 Random Glucose 103 mg/dL (70-110) 07/17/18 07:10 Calcium 8.8 mg/dL (8.4-10.5) 07/17/18 07:10 Phosphorus 3.7 mg/dL (2.5-4.5) 07/16/18 07:00 Magnesium 1.8 mg/dL (1.7-2.2) 07/16/18 07:00 Total Bilirubin 0.8 mg/dL (0.2-1.3) 07/17/18 07:10 AST 26 U/L (14-36) 07/17/18 07:10 ALT 50 U/L (7-56) 07/17/18 07:10 Alkaline Phosphatase 79 U/L (38-126) 07/17/18 07:10 Total Protein 7.6 g/dL (5.8-8.3) 07/17/18 07:10 Albumin 3.9 g/dL (3.0-4.8) 07/17/18 07:10 Globulin 3.7 gm/dL 07/17/18 07:10 Albumin/Globulin Ratio 1.1 (1.1-1.8) 07/17/18 07:10 Lipase 35 U/L (23-300) 07/15/18 19:15 Carcinoembryonic Ag 0.8 ng/mL (0.0-3.0) 07/15/18 19:15 CA 125 Antigen < 5.5 U/mL (0-35) 07/15/18 19:15 Urine Color Yellow (YELLOW) 07/15/18 19:15 Urine Appearance Slight-cloudy (CLEAR) 07/15/18 19:15 Urine pH 6.0 (4.7-8.0) 07/15/18 19:15 Ur Specific [place] >= 1.030 (1.005-1.035) 07/15/18 19:15 Urine Protein 30 mg/dL (<30 mg/dL) H 07/15/18 19:15 Urine Glucose (UA) Negative mg/dL (NEGATIVE) 07/15/18 19:15 Urine Ketones Trace mg/dL (NEGATIVE) H 07/15/18 19:15 Urine Blood Negative (NEGATIVE) 07/15/18 19:15 Urine Nitrate Negative (NEGATIVE) 07/15/18 19:15 Urine Bilirubin Negative (NEGATIVE) 07/15/18 19:15 Urine Urobilinogen 1.0 E.U./dL (<1 E.U./dL) H 07/15/18 19:15 Ur Leukocyte Esterase Negative Stefan/uL (NEGATIVE) 07/15/18 19:15 Urine RBC 0 - 2 /hpf (0-2) 07/15/18 19:15 Urine WBC 0 - 2 /hpf (0-6) 07/15/18 19:15 Ur Epithelial Cells 6 - 8 /hpf (0-5) 07/15/18 19:15 Urine Bacteria Trace (NEG) 07/15/18 19:15 Urine Other Mucus 07/15/18 19:15 Hepatitis A IgM Ab Negative (NEGATIVE) 07/16/18 07:00 Hep Bs Antigen Negative (NEGATIVE) 07/16/18 07:00 Hep B Core IgM Ab Negative (NEGATIVE) 07/16/18 07:00 Hepatitis C Antibody Negative (NEGATIVE) 07/16/18 07:00 - Hospital Course Hospital Course: PGY1 Hospital Course and Discharge Summary for Dr. Jj This is a 23 year old female who denies any medical history presenting to the hospital for abdominal pain that is has been intermittent over the last few months. Pain is located in the B/L lower abdomen, rated 6/10 at worst, sharp, non radiating and exacerbated by movement and denies any relieving factors. She admits to increasing abdominal distention, constipation and urinary frequency over the last few months as well. Per mother, patient has been eating less over the last few months. Patient saw her OBGYN two months ago for routine visit and had pap smear done but denies any other imaging at that time. Please see chart for details. Patient was found to have abdominal mass on imaging: CT abdomen and pelvis revealed large cystic structure extending from the pelvis into the abdomen measuring approximately 30 x 25 x 15 cm, of uncertain etiology but may be ovarian in origin. The urinary bladder is underdistended and is compressed by the cystic lesion. Please see official report for detailed summary. Urology on consult, Dr. Snyder; Please see report. OBGYN on consult, Dr. Mcpherson; Please see report. Surgery on consult, Dr. Ortega; Please see report. Transvaginal ultrasound was obtained and revealed no evidence of acute pathology in the uterus and ovaries, 22cm cyst in the left ovary, large complex cystic mass extending from the pelvis to the upper abdomen contains low-level echoes and possible small septation as discussed above. Please see report for details. Pelvis MRI was obtained: The uterus is normal in size and shape slightly displaced posteriorly. No evidence of fibroid or mass in the uterus. The junctional zone is normal in thickness. The endometrial stripe thickness is 1.2cm. The right ovary is visualized and displaced slightly superiorly and posteriorly in the mid-pelvis constains nromal sized follicles. The left ovary is also visualized contains hyperintense T2 cyst, Thin wall cystic lesion extending from the pelvis to the upper abdomen demonstrates no significant enhancement or solid component. Please see report for complete detail. Patient was provided with contact information for making an appointment with [facility] outpatient care: [facility] Master Analyst/onc department: [phone]. On day of discharge, Patient was hemodynamically stable and medically optimized for discharge. All consultants on the case agreed. Patient agreed. Patient was given detailed discharge instructions both verbally and written and was explained to Patient at the level of Patient's comprehension. Patient both understands and agrees to all discharge instructions. Please see chart for more detailed summary. Patient seen and case discussed in detail with Dr. Анна Sandoval PGY1 Discharge Exam - Additional Findings Additional findings: - Constitutional Appears: No Acute Distress - Head Exam Head Exam: ATRAUMATIC, NORMAL INSPECTION - Eye Exam Eye Exam: EOMI Pupil Exam: PERRL - ENT Exam ENT Exam: Mucous Membranes Moist - Respiratory Exam Respiratory Exam: Clear to Auscultation Bilateral, NORMAL BREATHING PATTERN. absent: Accessory Muscle Use, Wheezes, Respiratory Distress - Cardiovascular Exam Cardiovascular Exam: REGULAR RHYTHM, +S1, +S2 - GI/Abdominal Exam GI & Abdominal Exam: Distended, Normal Bowel Sounds, Soft. absent: Firm, Guarding Additional comments: B/L lower abdominal tenderness appreciated with superficial tenderness - Extremities Exam Extremities exam: Positive for: normal inspection, pedal pulses present. Negative for: calf tenderness - Back Exam Back exam: NORMAL INSPECTION. absent: CVA tenderness (L), CVA tenderness (R) - Neurological Exam Neurological exam: Alert, Oriented x3 - Skin Skin Exam: Normal Color, Warm Discharge Plan - Follow Up Plan Condition: FAIR Disposition: HOME/ ROUTINE Instructions: Acute Abdomen (Belly Pain), Adult (DC), Ovarian Cyst (DC), Urinary Retention (DC) Additional Instructions: Please follow up with primary medical doctor in 3-5 days. If you don't have a PMD, you can follow up at [facility] [place] [facility] [place] You can make an appointment with [facility] outpatient care: - [facility] Master Analyst/onc department: [phone]. You can also call [phone] for appointment. If your symptoms worsen, please go to the nearest Emergency Department. Referrals: Kalee Mcpherson MD [Staff Provider] - Harry Hughes MD [Medical Doctor] - Zak Mathew MD [Staff Provider] - Darrell Ortega MD [Staff Provider] -
--- NOTE | 2018-07-17 20:03 | CON ---
DATE: 07/17/2018 UROLOGY CONSULTATION NOTE HISTORY OF PRESENT ILLNESS: This very pleasant lady today in for abdominal discomfort and big cystic mass. Urology involving the bladder, but it turns out, see the report, it is not involving the bladder for now, see the plan as listed below. The patient also reports that she does not think she has any urinary troubles. She does not think she needs my help at all. I explained that Renal is going to talk to her and see if we can help her at all. She has no gross hematuria. No dysuria. They had inserted a Jovel catheter. She demanded that it was taken out, did not drain the bladder well. There were no real signs of urinary retention. PAST MEDICAL AND SURGICAL HISTORY: As listed on the chart. SOCIAL HISTORY: Socially, she works. 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 She is working very hard, in both processes. REVIEW OF SYSTEMS: As listed above, otherwise noncontributory. No weight loss, chest pain, or shortness of breath. RAD TECH HISTORY: Otherwise unremarkable. PHYSICAL EXAMINATION: GENERAL: Well-nourished female, in no apparent distress. VITAL SIGNS: Noted in the chart. LUNGS: Clear. ABDOMEN: Soft. PELVIC: Deferred to the exam of RAD TECH. From urology standpoint, there is no intervention at this point. We are going to observe as long as if anything is needed, if she goes for any RAD TECH or General Surgery and if there is any bladder involvement, will be available for assistance as needed, but in the interim, I gave the patient my phone and my card, and if she is needed for surgical intervention, Urology will be available. If not, we will follow up as needed. Please re-consult as needed. Thank you for the Urology consult. Lamont Mathew MD
== END 2018-07-17 11:43 | disposition home or self-care (01) ==
LOC: ED 18:46 → ERH 22:29 → 5RSO 07-16 00:33
PROVIDERS: ADMIT Internal Medicine; ATTEND Internal Medicine
DX: R19.00 Intra-abdominal and pelvic swelling, mass and lump, unspecified site (principal); R10.9 Unspecified abdominal pain; R11.2 Nausea with vomiting, unspecified; N83.292 Other ovarian cyst, left side; F12.90 Cannabis use, unspecified, uncomplicated; Z87.891 Personal history of nicotine dependence
CPT/HCPCS: 36415; 71250; 72197; 74177; 74183; 76830; 80053; 80074; 81001; 82378; 83690; 83735; 84100; 85025; 86304; 87389; 96374; 99284; A9579; G0378; J2405; J7030; Q9967

== ENCOUNTER 2018-08-24 16:43 | Emergency (ER) | payer MEDICAID ==
[2018-08-24 16:44] VITALS: BMI 30.7
[2018-08-24 17:04] VITALS: BP 144/85; PULSE 108; RESP 18; TEMP 98.3; O2SAT 99
[2018-08-24] MEDS ORDERED: Lidocaine 1%/Epinephrine 1:100000 30 ml vial IJ STA (17:23)
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
== END 2018-08-24 19:17 | disposition home or self-care (01) ==
LOC: ED 16:43
DX: S01.01XA Laceration without foreign body of scalp, initial encounter (principal); W22.8XXA Striking against or struck by other objects, initial encounter

== ENCOUNTER 2018-09-05 13:57 | Emergency (ER) | payer MEDICAID ==
[2018-09-05 14:22] VITALS: BMI 33.3
[2018-09-05 14:24] VITALS: BP 122/80; PULSE 79; RESP 17; TEMP 98.2; O2SAT 95
--- NOTE | 2018-09-05 15:09 | ED PDOC ---
Arrival/HPI - General Chief Complaint: Suture/Staple Removal Time Seen by Provider: 09/05/18 14:21 Historian: Patient - History of Present Illness Narrative History of Present Illness (Text): 09/05/18 15:06 23yo female who present to emergency department for staple removal from her frontal scalp. Notes that lori was placed here 2weeks ago. She denies discharge, fever, headache, any other complaint. Past Medical History - Provider Review Nursing Documentation Reviewed: Yes - Infectious Disease Hx of Infectious Diseases: None - Reproductive Currently : No - Cardiac Hx Cardiac Disorders: No - Pulmonary Hx Respiratory Disorders: No - Neurological Hx Neurological Disorder: No - HEENT Hx HEENT Disorder: No - Renal Hx Renal Disorder: No - Endocrine/Metabolic Hx Endocrine Disorders: No - Hematological/Oncological Hx Blood Disorders: No - Integumentary Hx Dermatological Disorder: No - Musculoskeletal/Rheumatological Hx Musculoskeletal Disorders: No Hx Falls: No - Gastrointestinal Hx Gastrointestinal Disorders: No - Genitourinary/Gynecological Hx Genitourinary Disorders: No - Psychiatric Hx Psychophysiologic Disorder: No Hx Substance Use: Yes (marijuana) - Anesthesia Hx Anesthesia: No Family/Social History - Physician Review Nursing Documentation Reviewed: Yes Family/Social History: Unknown Family HX Smoking Status: Current Some Days Smoker Hx Alcohol Use: Yes (soc) Hx Substance Use: Yes (marijuana) Allergies/Home Meds Allergies/Adverse Reactions: Allergies No Known Allergies Allergy (Verified 09/05/18 14:22) Home Medications: Home Meds Medication Instructions Recorded Confirmed RX: No Known Home Med 08/24/18 09/05/18 Review of Systems - Physician Review All systems were reviewed & negative as marked: Yes - Review of Systems Constitutional: Normal Eyes: Normal ENT: Normal Respiratory: Normal Cardiovascular: Normal Gastrointestinal: Normal Genitourinary Female: Normal Musculoskeletal: Normal Skin: Other (Staple removal) Neurological: Normal Endocrine: Normal Hemo/Lymphatic: Normal Psychiatric: Normal Physical Exam Vital Signs Reviewed: Yes Vital Signs Temp Pulse Resp BP Pulse Ox 09/05/18 14:23 98.2 F 79 17 122/80 95 Temperature: Afebrile Blood Pressure: Normal Pulse: Regular Respiratory Rate: Normal Appearance: Positive for: Well-Appearing, Non-Toxic, Comfortable Pain Distress: None Mental Status: Positive for: Alert and Oriented X 3 - Systems Exam Head: Present: Atraumatic, Normocephalic Pupils: Present: PERRL Extroacular Muscles: Present: EOMI Conjunctiva: Present: Normal Mouth: Present: Moist Mucous Membranes Neck: Present: Normal Range of Motion Respiratory/Chest: Present: Clear to Auscultation, Good Air Exchange. No: Respiratory Distress, Accessory Muscle Use Cardiovascular: Present: Regular Rate and Rhythm, Normal S1, S2. No: Murmurs Abdomen: No: Tenderness, Distention, Peritoneal Signs Back: Present: Normal Inspection Upper Extremity: Present: Normal Inspection. No: Cyanosis, Edema Lower Extremity: Present: Normal Inspection. No: Edema Neurological: Present: GCS=15, CN II-XII Intact, Speech Normal Skin: Present: Warm, Dry, Normal Color, Other (4staples noted in place to the frontal scalp). No: Rashes Psychiatric: Present: Alert, Oriented x 3, Normal Insight, Normal Concentration Medical Decision Making ED Course and Treatment: 09/05/18 19:35 23yo female in emergency department for stated history. 4 lori was removed. Scalp edges appear well approximated. No bleeding was noted. DC home and advised to keep area clean. Disposition/Present on Arrival - Present on Arrival Any Indicators Present on Arrival: No History of DVT/PE: No History of Uncontrolled Diabetes: No Urinary Catheter: No History of Decub. Ulcer: No History Surgical Site Infection Following: None - Disposition Have Diagnosis and Disposition been Completed?: Yes Diagnosis: Removal of lori Disposition: HOME/ ROUTINE Disposition Time: 15:10 Patient Plan: Discharge Patient Problems: Current Active Problems Problem Status Onset Removal of lori Acute Condition: STABLE Discharge Instructions (ExitCare): Staple Removal Additional Instructions: Keep area clean and dry follow up with your doctor Return to emergency department for any new symptoms Referrals: Sarah Rajan MD [Medical Doctor] - Follow up with primary Forms: [employer] (Japanese)
== END 2018-09-05 15:00 | disposition home or self-care (01) ==
LOC: ED 13:57
DX: S01.01XD Laceration without foreign body of scalp, subsequent encounter (principal)